=== PATIENT | female | born 1990 | race Hispanic/Latino ===

== ENCOUNTER 2022-12-04 07:41 | Outpatient (CLI) | payer MEDICAID | END 2022-12-04 07:42 | disposition home or self-care (01) | LOC: CSHULT 07:41 | PROVIDERS: ATTEND Nurse Practitioner Women's Health | DX: R10.2 Pelvic and perineal pain (principal); R93.89 Abnormal findings on diagnostic imaging of other specified body structures; N83.201 Unspecified ovarian cyst, right side | CPT/HCPCS: 76856 ==